=== PATIENT | female | born 1970 | race Caucasian/White ===

== ENCOUNTER → 2017-12-20 | Outpatient (CLI) | payer OTHER | LOC: M.RAD 12-03 08:14 | DX: Z13.6 Encounter for screening for cardiovascular disorders (principal); R92.8 Other abnormal and inconclusive findings on diagnostic imaging of breast; N60.21 Fibroadenosis of right breast; N60.22 Fibroadenosis of left breast ==

== ENCOUNTER → 2017-12-20 | Outpatient (CLI) | payer OTHER | LOC: M.CT 14:30 | DX: Z13.6 Encounter for screening for cardiovascular disorders (principal); R00.0 Tachycardia, unspecified ==

== ENCOUNTER → 2018-01-22 | Outpatient (CLI) | payer OTHER ==
--- NOTE | 2018-01-22 14:22 | 2DMMODE ---
[place] [address] 2 D/M-MODE ECHOCARDIOGRAM Name: CARLEE CONTRERAS Room: [facility]#: [id number] Admission: 01/22/18 Attend Phys: Isela Fernandes MD Discharge: Date of : 68 Date of Service: 01/22/18 1421 Report #: [id number] THIS REPORT FOR: //name// APPROVED REPORT Study performed: 01/22/2018 13:25:25 EXAM: Comprehensive 2D, Doppler, and color-flow Echocardiogram Patient Location: Out-Patient BSA: 1.88 HR: 83 bpm BP: 132/85 mmHg Other Information Study Quality: Excellent Indications Dilated ascending aorta 2D Dimensions IVSd: 10.55 (7-11mm) LVOT Diam: 20.79 (18-24mm) LVDd: 48.85 mm PWd: 11.39 (7-11mm) Ascending Ao: 31.65 (22-36mm) LVDs: 28.22 (25-40mm) Aortic Root: 27.31 mm Volumes Left Atrial Volume (Systole) LA ESV Index: 22.10 mL/m2 Aortic Valve AoV Peak Osvaldo.: 1.32 m/s AO Peak Gr.: 6.97 mmHg LVOT Max P.31 mmHg AO Mean Gr.: 3.94 mmHg LVOT Mean P.58 mmHg LVOT Max V: 0.91 m/s AO V2 VTI: 25.48 cm LVOT Mean V: 0.57 m/s ZOË (VTI): 2.64 cm2 LVOT V1 VTI: 19.78 cm Mitral Valve E/A Ratio: 0.73 MV Decel. Time: 240.35 ms MV E Max Osvaldo.: 0.70 m/s MV PHT: 69.70 ms MVA (PHT): 3.16 [place]2 [place] [address] 2 D/M-MODE ECHOCARDIOGRAM Name: CARLEE CONTRERAS Room: [facility]#: [id number] Admission: 01/22/18 Attend Phys: Isela Fernandes MD Discharge: Date of : 68 Date of Service: 01/22/18 1421 Report #: [id number] TDI E/Lateral E': 7.00 E/Medial E': 8.75 Medial E' Osvaldo.: 0.08 m/s Lateral E' Osvaldo.: 0.10 m/s Pulmonary Valve PV Peak Osvaldo.: 0.71 m/s PV Peak Gr.: 2.03 mmHg Tricuspid Valve RAP Estimate: 5.00 mmHg TR Peak Gr.: 26.86 mmHg RVSP: 31.86 mmHg PA Pressure: 31.86 mmHg Left Ventricle The left ventricle is normal size. There is normal LV segmental wall motion. Mild concentric left ventricular hypertrophy. Left ventricular systolic function is normal. The left ventricular ejection fraction is within the normal range. LVEF is 55-60%. Grade I - abnormal relaxation pattern. Right Ventricle The right ventricle is normal size. The right ventricular systolic function is normal. Atria The left atrium size is normal. The right atrium size is normal. Aortic Valve The aortic valve is normal in structure. No aortic regurgitation is present. There is no aortic valvular stenosis. Mitral Valve The mitral valve is normal in structure. Trace mitral regurgitation. No evidence of mitral valve stenosis. Tricuspid Valve The tricuspid valve is normal in structure. Mild tricuspid regurgitation. estimated pa pressure 35 mm Hg Pulmonic Valve The pulmonary valve is normal in structure. Mild pulmonic regurgitation[place] [address] 2 D/M-MODE ECHOCARDIOGRAM Name: CARLEE CONTRERAS Room: [facility]#: [id number] Admission: 01/22/18 Attend Phys: Isela Fernandes MD Discharge: Date of : 68 Date of Service: 01/22/18 1421 Report #: [id number] The aortic root is normal in size. IVC is normal in size and collapses >50% with inspiration. Pericardium There is no pericardial effusion. <Conclusion> LVEF is 55-60%. Mild concentric left ventricular hypertrophy. Mild tricuspid regurgitation. estimated pa pressure 35 mm Hg <ELECTRONICALLY SIGNED> By: Christian Wesley MD, FACC 01/22/18 142 20 20 Christian Wesley MD, FACC /INF
== END ==
LOC: M.CRD 01-21 08:00 → M.RAD 01-21 08:30 → M.CRD 13:00
DX: I37.1 Nonrheumatic pulmonary valve insufficiency (principal); I77.810 Thoracic aortic ectasia; J98.11 Atelectasis; I07.1 Rheumatic tricuspid insufficiency

== ENCOUNTER → 2020-08-01 | Outpatient (CLI) | payer OTHER | LOC: M.CT 07-25 10:30 | PROVIDERS: ATTEND Nurse Practitioner Family | DX: R91.1 Solitary pulmonary nodule (principal); Z80.1 Family history of malignant neoplasm of trachea, bronchus and lung ==